=== PATIENT | male | born 1955 | race Caucasian/White ===

== ENCOUNTER 2018-02-28 12:50 | Outpatient (CLI) | payer BC, MEDICARE ==
--- NOTE | 2018-02-28 18:19 | MRI ---
MRI OF CERVICAL SPINE WITHOUT CONTRAST 02/28/18 COMPARISON: 02/23/15. HISTORY: Chronic neck pain radiating from back to head. TECHNIQUE: Multiplanar and multisequence MRI imaging of the cervical spine is provided without contrast. FINDINGS: There is scoliosis of the cervical spine, limiting detailed assessment. The study is also somewhat li mited by motion artifact. The sagittal STIR imaging demonstrates no focal areas of osseous marrow janis ma. There is no significant anterolisthesis or retrolisthesis evident on this exam. There is moderate degenerative change at the atlantoaxial interspaces, slightly progressed since the prior exam. C2-3: There is disc desiccation with bilateral facet and uncovertebral osteophyte formation, right gr eater than left. No significant central canal stenosis. Mild bilateral neural foraminal stenosis. C3-4: Disc desiccation present with bilateral facet and uncovertebral osteophyte formation, left grea ter than right. Mild central canal stenosis and right neural foraminal stenosis. Moderate left neural foraminal stenosis. C4-5: There is disc desiccation and mild disc space narrowing. There is bilateral facet and uncoverte bral osteophyte formation. There is no significant central canal stenosis. There is mild bilateral ne ural foraminal stenosis. C5-6: There is disc space narrowing, disc desiccation, anterior osteophyte formation and disc osteoph yte complex partially effacing the ventral thecal and leading to a mild degree of central canal steno sis. There is bilateral facet and uncovertebral osteophyte formation with moderate right and severe l eft neural foraminal stenosis. C6-7: Disc space narrowing, disc desiccation, anterior osteophyte formation and disc osteophyte compl ex present. There is effacement of the ventral thecal sac with mild central canal stenosis. There is mild right and severe left neural foraminal stenosis. C7-T1: Disc space narrowing and disc desiccation with bilateral facet hypertrophy. Mild bilateral ana luisa ral foraminal stenosis. No significant central canal stenosis. There is no focal area of abnormal sig nal intensity identified within the cervical cord. Detailed assessment on axial imaging is limited by persistent patient motion artifact. IMPRESSION: Multilevel degenerative change within the cervical spine as detailed above. POS: [facility]
== END 2018-02-28 12:51 | disposition home or self-care (01) ==
LOC: SCSMRI 12:50
PROVIDERS: ATTEND Psychiatry & Neurology Neurology
DX: G56.03 Carpal tunnel syndrome, bilateral upper limbs (principal); M47.892 Other spondylosis, cervical region
CPT/HCPCS: 72141

== ENCOUNTER 2018-04-08 14:48 | Inpatient (IN) | payer BC, MEDICARE ==
--- NOTE | 2018-04-08 15:23 | RAD ---
CHEST 1 VIEW: HISTORY: Nausea. Abdominal and chest pain. COMPARISON: 07/02/17. FINDINGS: Cardiac silhouette magnified by projection. Pulmonary vasculature upper limits of normal. Mediastin um is midline. Right hemidiaphragm remains lobulated. No lobar consolidation or evidence of pneumot horax. cardiac monitor leads overlie the chest. IMPRESSION: Borderline pulmonary vascular congestion. POS: [facility]
[2018-04-08 15:33] LABS: Hemoglobin 12.4 g/dL (14.0-18.0); Mean Corpuscular HGB CONC 34.1 g/dL (32.0-36.0); Mean Platelet Volume 7.3 fL (7.4-10.4); Platelet Count 154 thou/uL (130-400); RBC Distribution Width 14.6 % (11.5-14.5); Red Blood Cell (RBC) Count 4.14 mill/uL (4.70-6.10); White Blood Cell (WBC) Count 6.6 thou/uL (4.8-10.8)
[2018-04-08 15:54] LABS: ALT (SGPT) 30 U/L (8-55); AST (SGOT) 73 U/L (5-34); Albumin 3.5 g/dL (3.4-4.8); Alkaline Phosphatase 220 U/L (40-150); Anion Gap 18 mmol/L (10-20); BUN (Urea Nitrogen) 42 mg/dL (8.4-25.7); Bilirubin, Total 1.9 mg/dL (0.2-1.2); Calc. Creatinine Clearance 0 mL/min (70-130); Calcium 8.8 mg/dL (7.8-10.44); Carbon Dioxide 18 mmol/L (23-31); Chloride 102 mmol/L (98-107); Estimated GFR-MDRD 27; Globulin 2.6 g/dL (2.4-3.5); Glucose 111 mg/dL (80-115); Lipase 52 U/L (8-78); Potassium 3.6 mmol/L (3.5-5.1); Protein, Total 6.1 g/dL (5.8-8.1); Sodium 134 mmol/L (136-145)
[2018-04-08 16:00] LABS: Band 41 % (5-11); Lymphocytes 1 % (21-51); MDiff Complete? YES; Metamyelocyte 8 % (0-0); Myelocyte 3 % (0-0); Neutrophil 47 % (42-75); PLT Morphology Comment Appears Adequate; Polychromasia SLIGHT = 2-3 cells (100X) (0-2/hpf); Reflex for Review?? YES; Vacuoles MODERATE
[2018-04-08] MEDS ORDERED: Diphenoxylate HCl/Atropine Tablet PO SCH (16:00)
[2018-04-08] MEDS ORDERED: Diphenoxylate HCl/Atropine Tablet ONE (16:06)
[2018-04-08] MEDS ORDERED: Norepinephrine 8 MG/250 ML BAG IVPB PRN (16:46)
[2018-04-08] MEDS ORDERED: metroNIDAZOLE 500 MG/100 ML BAG ONE (17:17)
--- NOTE | 2018-04-08 18:15 | RAD ---
ABDOMEN ONE VIEW 04/08/18 HISTORY: Central line verification. COMPARISON: None. FINDINGS: A central venous catheter is in place in the left femoral areas with the tip not well see, quite poss ibly due to the SI joint fusion hardware. Lumbosacral fusion hardware is also present. IMPRESSION: Left femoral catheter tip not well seen. Followup recommended. POS: [facility]
[2018-04-08 18:32] LABS: Bilirubin Negative (Negative); Blood, Urine Large (Negative); Clarity TURBID (Clear); Glucose, Urine (Dipstick) Negative (Negative); Leukocyte Large (Negative); Nitrite Negative (Negative); Protein, Urine (Dipstick) 100 mg/dL (Neg-Trace); Specific Gravity, Urine 1.012 (1.002-1.036); pH, Urine 5.5 (5.0-9.0)
[2018-04-08 18:35] LABS: Bacteria/HPF 4+ HPF (None Seen); Hyaline Casts/LPF 0-3 HYALINE CAST LPF (0-3 Hyaline); Pathc Cast-AUWi Flag 0.14 (0-2.49); RBC/HPF GREATER THAN 50-TNTC HPF (0-3); Squamous Epithelial 0-3 HPF (0-3)
[2018-04-08] MEDS ORDERED: Acetaminophen 325 MG TAB PO PRN (19:32)
[2018-04-08] MEDS ORDERED: Ondansetron ODT 4 MG TAB SL PRN (19:32)
[2018-04-08] MEDS ORDERED: Sodium Chloride 0.9% 1,000 ML IV SCH ×2 (19:32→20:02)
[2018-04-08] MEDS ORDERED: Ondansetron HCl/PF 4 MG/2 ML Vial IVP PRN ×2 (19:32→20:02)
--- NOTE | 2018-04-08 20:01 | HP ---
PRIMARY CARE PHYSICIAN: Dr. Jacqueline Mccallum in [place]. CHIEF COMPLAINT: Nausea, vomiting, diarrhea, and feeling weak. HISTORY OF PRESENT ILLNESS: Mr. Vu is a pleasant 62-year-old gentleman who has a history of h ypertension and peptic ulcer disease as well as posttraumatic stress disorder. He was in his usual s oneill of health until this past Tuesday. He says that he got overheated and started feeling very we ak and the muscles were hurting him really bad, then he started vomiting and having diarrhea. He say s he tried to take it easy and drink as much fluids as he could, but he could not hold anything down including his medications, then by Tuesday it started getting worse. He trying to drink water as well as Dr. Mayo thinking it might help, but he still got very weak and was having no energy. During t his time, he continued to vomit at least 3-4 times a day as well as have diarrhea, which he says is m ore like a soft stool at least 3-4 times a day as well. He did not notice any blood in the stool, bu t on Tuesday, he said he noticed a lot of blood in his urine. He says it was so much that it was e karla getting on the toilet seat. He also noted some burning with urination. He always has back pain due to chronic back pain, so that had not changed. He did notice some fever and chills on Wednesdays and , as well as on Tuesday. He does have nocturia at least 2-3 times a day and has noted a decrease in his urine stream. Also, regarding the nausea and vomiting, he says he has not eaten an ything different. No one else has been sick in the house and prior to this current illness, he was n ot having any excessive difficulty with eating. REVIEW OF SYSTEMS: Constitutional: He has had subjective fever and chills, decreased oral intake an d decrease in his appetite. HEENT: He has felt dizzy and some lightheadedness, but no visual change s, no sore throat, rhinorrhea, neck pain, no adenopathy. Pulmonary: No hemoptysis, no cough, no whe ezing. Cardiovascular: He denies any chest pain or shortness of breath, no PND, no orthopnea. Maribell rointestinal: As the history of present illness. Genitourinary: As the history of present illness. Musculoskeletal: He does complain of some muscle aches and feeling weak earlier in the week. Neur ologic: No focal weakness or numbness, no seizures. Psychiatric: No symptoms of anxiety or depress ion. Skin and Integument: No skin changes. No rash. PAST MEDICAL HISTORY: Significant for peptic ulcer disease and significant GI bleed secondary to mary t requiring transfusion. Hypertension and posttraumatic stress disorder. PAST SURGICAL HISTORY: He has had spinal surgery, septic arthritis of the right knee. He has also h ad a total knee replacement on the right. Multiple back surgeries as well as hip surgery. SOCIAL HISTORY: He is a former smoker. He quit about 15 years ago. He denies any alcohol use. He is and he is retired. ALLERGIES: PENICILLIN. FAMILY HISTORY: History of heart disease and cancer. CURRENT MEDICATIONS: Include fenofibrate 145 mg daily, lisinopril/hydrochlorothiazide 20/25 one tabl et twice a day, metoprolol 50 mg daily, Protonix 40 mg a day, Viagra 100 mg daily, simvastatin 20 mg daily, Seroquel 50 mg daily, amlodipine 5 mg daily, Meloxicam 15 mg at bedtime. PHYSICAL EXAMINATION: VITAL SIGNS: His initial blood pressure was 85/50, heart rate was 106, respiratory rate of 24, tempe rature is 99.4. GENERAL: He is a well-developed and well-nourished. He appears to be in some distress and he is unc omfortable, but he says this is because of back pain which is chronic. HEENT: His pupils are equal, round, and reactive. Extraocular muscles are intact. Sclerae are anic teric. Throat: There is no erythema, no exudates. NECK: No adenopathy, no bruits. LUNGS: Clear to auscultation. There is no wheezing or rales. CARDIOVASCULAR: He has a normal S1, S2. There is no S3 or S4. No murmurs, clicks or rubs. ABDOMEN: Distended, it is obese, it is nontender. There is no rebound or guarding. Positive bowel sounds. EXTREMITIES: He has got trace pedal edema. He has got palpable dorsalis pedis pulses. NEUROLOGICALLY: The exam is nonfocal. LABORATORY DATA: White blood cell count 6.6, hemoglobin 12.4, hematocrit is 36.5, platelet count was 154. He had 41 bands. Sodium 134, potassium 3.6, chloride is 102, CO2 is 18, BUN of 42, creatinine 2.4 and glucose is 111. Lactic acid is 4.4. His total bilirubin was 1.9, alkaline phosphatase was 220. He had an abdominal x-ray which was primarily for line placement. Chest x-ray was essentially negative. ASSESSMENT AND PLAN: This is a pleasant 62-year-old gentleman who presents to the emergency room wit h nausea, vomiting, and diarrhea, which is going on for several days. He was hypotensive on presenta tion and has a bandemia and low-grade temperature. There are no obvious signs of infection; however, the patient does admit to some hematuria and the urinalysis has only just now been sent. The urine color was tannish; however, it was clear. It is also noted that he has an elevated total bilirubin a s well as alkaline phosphatase, and he still has his gallbladder, therefore gallbladder pathology is a possibility in addition to potentially a urine source. He also has an acute renal failure likely a s a result of a combination of volume depletion as well as sepsis. He will be placed in the ICU, sta rted on fluid resuscitation, he is already had 4 liters in the emergency room. This will be continue d. He will be placed on antibiotics to cover primarily a GI or urine source. Urinalysis and urine c ulture will be sent. Given the acute renal failure, we will also get a renal ultrasound and we will get an abdominal ultrasound given the elevated alkaline phosphatase. If he has a urinary tract infec tion and his symptoms improve with treatment with IV antibiotics, then we will forego getting a GI co nsult; however, if his nausea and vomiting persist, then a GI consultation will be entertained. Give n his history of peptic ulcer disease, we will place him on IV Protonix twice a day as well as IV ant iemetics until his acute symptomatology can be sorted out.
[2018-04-08] MEDS ORDERED: Ondansetron ODT 4 MG TAB PO PRN (20:02)
--- NOTE | 2018-04-08 20:03 | RAD ---
CHEST ONE VIEW: 04/08/18 HISTORY: Central line placement. COMPARISON: Chest radiograph same day. FINDINGS: No central venous catheter is seen on this examination. Heart size is mildly enlarged. Mild worsening pulmonary venous congestion. IMPRESSION: Mild worsening pulmonary venous congestion. No central venous catheter is seen. POS: [facility]
[2018-04-08 20:08] LABS: Lactic Acid 3.6 mmol/L (0.5-2.2)
[2018-04-08] MEDS: Pantoprazole 40 MG VIAL IVP SCH (20:14)
[2018-04-08] MEDS: traMADol HCl 50 MG TAB PO PRN (20:14)
[2018-04-08] MEDS ORDERED: Furosemide 40 MG/4 ML VIAL SLOW IVP SCH (20:15)
[2018-04-08] MEDS: Acetaminophen 325 MG TAB PO PRN (20:15)
[2018-04-08] MEDS ORDERED: Acetaminophen/Codeine 30-300mg Tablet PO PRN (21:06)
[2018-04-08] MEDS ORDERED: Ferrous Sulfate 325 MG TAB PO SCH (21:30)
[2018-04-08] MEDS ORDERED: Atorvastatin Calcium 10 MG TAB PO SCH (21:30)
[2018-04-08] MEDS ORDERED: Venlafaxine HCl XR 150 MG CAP PO SCH (21:30)
[2018-04-08] MEDS ORDERED: Fenofibrate Nanocrystallized 145 MG TAB PO SCH (21:30)
[2018-04-08] MEDS: Fenofibrate Nanocrystallized 145 MG TAB PO SCH (22:29)
[2018-04-08] MEDS: Atorvastatin Calcium 10 MG TAB PO SCH (22:30)
[2018-04-08] MEDS: Ferrous Sulfate 325 MG TAB PO SCH (22:30)
[2018-04-08] MEDS: Sodium Chloride 0.9% 1,000 ML IV SCH (22:42)
[2018-04-09] MEDS: Norepinephrine 8 MG/0.9% NS 250 ML IVPB SCH ×3 (00:28→09:23)
[2018-04-09] MEDS: Vasopressin 40 UNIT, Admixture Fee 1 EACH in Sodium Chloride 0.9% 100 ML IV SCH ×2 (01:27→17:53)
[2018-04-09 05:27] LABS: Anion Gap 15 mmol/L (10-20); BUN (Urea Nitrogen) 42 mg/dL (8.4-25.7); Calc. Creatinine Clearance 57 mL/min (70-130); Calcium 8.5 mg/dL (7.8-10.44); Carbon Dioxide 20 mmol/L (23-31); Chloride 102 mmol/L (98-107); Estimated GFR-MDRD 30; Glucose 103 mg/dL (80-115); Potassium 4.3 mmol/L (3.5-5.1); Sodium 133 mmol/L (136-145)
[2018-04-09 05:30] LABS: Band 41 % (5-11); Lymphocytes 1 % (21-51); MDiff Complete? YES; Mean Corpuscular HGB CONC 33.7 g/dL (32.0-36.0); Mean Corpuscular Hemoglobin 29.9 pg (27.0-31.0); Mean Corpuscular Volume 88.8 fl (80.0-94.0); Mean Platelet Volume 7.5 fL (7.4-10.4); Metamyelocyte 2 % (0-0); Monocytes 1 % (0-10); Myelocyte 1 % (0-0); Neutrophil 54 % (42-75); PLT Morphology Comment Appears Adequate; Platelet Count 155 thou/uL (130-400); RBC Distribution Width 14.5 % (11.5-14.5); Red Blood Cell (RBC) Count 4.01 mill/uL (4.70-6.10); Toxic Granulation SLIGHT; Vacuoles SLIGHT; White Blood Cell (WBC) Count 20.9 thou/uL (4.8-10.8)
--- NOTE | 2018-04-09 07:54 | ULT ---
SONOGRAM ABDOMEN COMPLETE: HISTORY: Upper abdomen pain. Abnormal liver function tests. FINDINGS: Gallbladder discussed up to 9.0 cm. No shadowing stones are apparent. Gallbladder wall is somewhat thickened at 0.6 cm with minimal pericholecystic fluid. Liver is heterogeneous without intrahepatic biliary dilatation evident. Common duct 0.6 cm. No sign ificant free fluid. Small right renal cyst. No hydronephrosis. Tiny echogenic focus at the superio r pole left kidney is nonspecific. Urinary bladder decompressed. Spleen unremarkable. The aorta, I VC, and pancreas are predominantly obscured. IMPRESSION: Gallbladder distention and wall thickening can be seen with acute cholecystitis, although these are n onspecific findings. Clinical correlation regarding other signs and symptoms of acute cholecystitis is required. No evidence of central biliary obstruction. No focal hepatic abnormalities are apparen t. POS: [facility]
[2018-04-09] MEDS: traMADol HCl 50 MG TAB PO PRN ×3 (08:04→19:48)
[2018-04-09] MEDS: Acetaminophen 325 MG TAB PO PRN ×2 (08:05→14:17)
[2018-04-09] MEDS: Pantoprazole 40 MG VIAL IVP SCH ×2 (08:05→19:48)
[2018-04-09] MEDS ORDERED: Venlafaxine HCl XR 150 MG CAP PO SCH (09:00)
[2018-04-09] MEDS ORDERED: cefTRIAXone\\ROCEPHIN 1 GM in Sodium Chloride 0.9% 100 ML IVPB SCH (10:00)
[2018-04-09] MEDS: Hydrocortisone Sod Succ/PF 100 mg/2 ml Vial IVP SCH ×3 (11:43→23:03)
[2018-04-09] MEDS: Venlafaxine HCl XR 150 MG CAP PO SCH (11:44)
[2018-04-09 12:29] LABS: AST (SGOT) 110 U/L (5-34); Bilirubin, Direct 1.2 mg/dL (0.1-0.3); Bilirubin, Total 1.7 mg/dL (0.2-1.2)
[2018-04-09 12:40] LABS: ALT (SGPT) 51 U/L (8-55); Albumin 3.5 g/dL (3.4-4.8); Alkaline Phosphatase 82 U/L (40-150); Protein, Total 6.3 g/dL (5.8-8.1)
[2018-04-09] MEDS: Sodium Chloride 0.9% 1,000 ML IV SCH (14:17)
[2018-04-09] MEDS ORDERED: Meropenem 1 GM in Sodium Chloride 0.9% 100 ML IVPB SCH (14:30)
[2018-04-09] MEDS: MEROPENEM 1 GM/50 ML 1 GM in Premix Bag 1 BAG IVPB SCH ×2 (15:10→23:06)
--- NOTE | 2018-04-09 15:30 | PDOC.PN ---
- Subjective Encounter Start Date: 04/09/18 Encounter Start Time: 10:30 Subjective: pt up in bed eating - Objective Resuscitation Status: Resuscitation Status FULL:Full Resuscitation Vital Signs & Weight: Vital Signs (12 hours) Temp Pulse Resp Pulse Ox 04/09/18 12:00 98.1 F 04/09/18 08:52 98 04/09/18 08:00 97.9 F 102 H 21 H 100 Weight Weight 262 lb 2.074 oz Most Recent Monitor Data Heart Rate from ECG 80 NIBP 113/74 NIBP BP-Mean 86 Respiration from ECG 24 SpO2 100 I&O: 04/08/18 04/09/18 04/10/18 06:59 06:59 06:59 Intake Total 1339.5 1080 Output Total 3675 1930 Balance -2335.5 -850 Result Diagrams: 04/09/18 04:45 04/09/18 04:45 Phys Exam - Physical Examination HEENT: PERRLA, moist MMs, sclera anicteric, TM's clear, oral pharynx no lesions , 2+ tonsils Neck: no nodes, no JVD, supple, full ROM Respiratory: no wheezing, no rales, no rhonchi, wheezing present, clear to auscultation bilateral Cardiovascular: RRR, no significant murmur, no rub, gallop, irregular Gastrointestinal: soft, non-tender, no distention, positive bowel sounds Musculoskeletal: no edema, pulses present, edema present Dx/Plan (1) Sepsis Code(s): A41.9 - SEPSIS, UNSPECIFIED ORGANISM Status: Acute (2) UTI (urinary tract infection) Status: Acute (3) Leukocytosis Code(s): D72.829 - ELEVATED WHITE BLOOD CELL COUNT, UNSPECIFIED Status: Acute (4) Acute kidney injury Code(s): N17.9 - ACUTE KIDNEY FAILURE, UNSPECIFIED Status: Acute Comment: resolving - Plan * . pt is still on 2 pressors but are being weaned down. will change abx to meropenam since he is still on pressors but clinically appears well. His RUQ ultrasound indicated gall bladder enlargement and thickness. may get HIDA scan. Review of Systems - Review of Systems ENT: negative: Ear Pain, Ear Discharge, Nose Pain, Nose Discharge, Nose Congestion, Mouth Pain, Mouth Swelling, Throat Pain, Throat Swelling, Other Respiratory: negative: Cough, Dry, Shortness of Breath, Hemoptysis, SOB with Excertion, Pleuritic Pain, Sputum, Wheezing Cardiovascular: negative: chest pain, palpitations, orthopnea, paroxysmal nocturnal dyspnea, edema, light headedness, other Gastrointestinal: negative: Nausea, Vomiting, Abdominal Pain, Diarrhea, Constipation, Melena, Hematochezia, Other Genitourinary: negative: Dysuria, Frequency, Incontinence, Hematuria, Retention , Other - Medications/Allergies Allergies/Adverse Reactions: Allergies Allergy/AdvReac Type Severity Reaction Status Date / Time Penicillins Allergy Severe chest Verified 07/02/17 18:49 cramps, "massive" Medications: Current Medications Acetaminophen (Tylenol) 650 mg PO Q4H PRN PRN Reason: Headache/Fever or Pain Last Admin: 04/09/18 14:17 Dose: 650 mg Acetaminophen/Codeine Phosphate (Tylenol #3) 1 tab PO TID PRN PRN Reason: Pain Albuterol/Ipratropium (Duoneb) 3 ml NEB Q4H PRN PRN Reason: .SOB Last Admin: 04/08/18 20:16 Dose: 3 ml Atorvastatin Calcium (Lipitor) 10 mg PO HS JUDIT Last Admin: 04/08/18 22:30 Dose: 10 mg Fenofibrate (Tricor) 145 mg PO QPM JUDIT Last Admin: 04/08/18 22:29 Dose: 145 mg Ferrous Sulfate (Feosol) 325 mg PO HS JUDIT Last Admin: 04/08/18 22:30 Dose: 325 mg Hydrocortisone Sodium Succinate (Solu-Cortef) 50 mg IVP Q6HR JUDIT Stop: 04/16/18 12:01 Last Admin: 04/09/18 11:43 Dose: 50 mg Norepinephrine Bitartrate (Levophed) 250 mls @ 0 mls/hr IVPB INF JUDIT; Titrate PRN Reason: Protocol Last Admin: 04/09/18 09:23 Dose: 250 mls Sodium Chloride (Normal Saline 0.9%) 1,000 mls @ 50 mls/hr IV .Q20H JUDIT Last Admin: 04/09/18 14:17 Dose: 1,000 mls Vasopressin 40 unit/Miscellaneous Medication 1 each/ Sodium Chloride 102 mls @ 0 mls/hr IV INF JUDIT; As Directed PRN Reason: Protocol Last Admin: 06/10/18 01:27 Dose: 102 mls Meropenem 1 gm/ Device 50 mls @ 100 mls/hr IVPB Q8H [facility] Last Admin: 04/09/18 15:10 Dose: 50 mls Ondansetron HCl (Zofran Odt) 4 mg PO Q6H PRN PRN Reason: Nausea/Vomiting Last Admin: 04/08/18 20:17 Dose: 4 mg Ondansetron HCl (Zofran) 4 mg IVP Q6H PRN PRN Reason: Nausea/Vomiting Pantoprazole Sodium (Protonix) 40 mg IVP Q12HR [facility] Last Admin: 04/09/18 08:05 Dose: Not Given Quetiapine Fumarate (Seroquel) 50 mg PO HS [facility] Last Admin: 04/08/18 22:31 Dose: 50 mg Ranolazine (Ranexa) 500 mg PO BID [facility] Last Admin: 04/09/18 08:04 Dose: 500 mg Sodium Chloride (Flush - Normal Saline) 10 ml IVF Q12HR JUDIT Sodium Chloride (Flush - Normal Saline) 10 ml IVF PRN PRN PRN Reason: Saline Flush Tramadol HCl (Ultram) 50 mg PO Q4H PRN PRN Reason: Moderate Pain (4-6) Last Admin: 04/09/18 14:17 Dose: 50 mg Venlafaxine HCl (Effexor Xr) 150 mg PO 0600,1200 [facility] Last Admin: 04/09/18 11:44 Dose: 150 mg
--- NOTE | 2018-04-09 16:43 | CON ---
DATE OF CONSULTATION: 04/09/2018 HISTORY OF PRESENT ILLNESS: Temo Vu is a 62-year-old obese gentleman from [place], [place], who weighs 113 kilograms, presented to the ER on 04/08/2018 with hypotension, blood pressure 85/55, t emperature 99, respiration 24 with a several day history of intermittent nausea, vomiting, diarrhea, back pain. He said he became overheated on Tuesday, 3 days ago, profuse diarrhea, he has had blood in the urine. Day before coming to the hospital, he did have severe back pain, weakness, dizziness, lightheaded for the hematuria and hypertension. He normally sees a doctor in [place] and Dr. Mccallum. Since admission, he was started on 2 pressors, Levophed and vasopressin, hydrated. He is feeling better this morning. He is awake, alert, and responsive. PAST MEDICAL HISTORY: Pertinent for chronic pain; history of sleep apnea, though he has never been t ested; history of hypertension; history of anxiety; history of traumatic stress syndrome apparently; former smoker, a pack a day for 30 years. PAST SURGICAL HISTORY: Otherwise included a T12-S1 lumbar fusion, rectal surgery, bilateral hip surg iván, right knee surgery. SOCIAL HISTORY: Tobacco as noted, a pack a day for about 15 years, quit smoking 15 years ago. LIST OF MEDICATIONS: From home includes Tylenol No. 3, vitamins, Effexor 150 twice a day, Ranexa 500 twice a day, lisinopril twice a day, Viagra 1 tablet as needed, Seroquel 50, Protonix 40, metoprolol , Keppra 50, Zocor 20, meloxicam 15, Norvasc 5. He is started on Levaquin antibiotic and pressors. ALLERGIES: PENICILLIN. SOCIAL/FAMILY HISTORY: Otherwise unremarkable. REVIEW OF SYSTEMS: Ten point negative. PHYSICAL EXAMINATION: VITAL SIGNS: Blood pressure is 101/80, pulse rate is 80. GENERAL: Awake, alert, responsive. CHEST: Reveals no crackles, rubs or wheezing. CARDIAC: Normal S1, S2, no gallops. ABDOMEN: Soft. No masses. LABORATORY: White count 20,000, H and H 12 and 25, platelet count 55. He has got 41 bands. Creatin ine is 2.4, BUN is 42. Lactic acid 4.6. Urine shows too numerous to count rbcs and wbcs. Ultrasoun d of the abdomen shows gallbladder distention and thickening, possibly cholecystitis. IMPRESSION: Hypotension, sepsis, urinary tract infection, morbid obesity, sleep apnea, renal failure , hypertension, chronic arthritis, depression. PLAN: A consult has been ordered. Continue aggressive hydration. I have added steroids and Rocephin for broader coverage. We will follow. Forty-five minutes critical care time.
[2018-04-09] MEDS: Ferrous Sulfate 325 MG TAB PO SCH (19:47)
[2018-04-09] MEDS: Fenofibrate Nanocrystallized 145 MG TAB PO SCH (19:48)
[2018-04-09] MEDS: Atorvastatin Calcium 10 MG TAB PO SCH (19:48)
[2018-04-09] MEDS ORDERED: ALPRAZolam 1 MG TAB PO PRN (20:13)
[2018-04-10] MEDS: Hydrocortisone Sod Succ/PF 100 mg/2 ml Vial IVP SCH ×4 (05:04→20:47)
[2018-04-10] MEDS: Venlafaxine HCl XR 150 MG CAP PO SCH ×2 (05:04→13:03)
[2018-04-10] MEDS: MEROPENEM 1 GM/50 ML 1 GM in Premix Bag 1 BAG IVPB SCH (05:55)
[2018-04-10] MEDS: Pantoprazole 40 MG VIAL IVP SCH ×2 (08:53→20:47)
--- NOTE | 2018-04-10 08:58 | PRG ---
DATE OF SERVICE: 04/10/2018 This morning he is awake, alert, responsive. PHYSICAL EXAMINATION: VITAL SIGNS: Blood pressure is better 110/80, pulse 80, respiration rate 18. He is still on some va sopressin drip, off of the Levophed. His I's and O's are 3464 in, 3415 out. CHEST: No wheezing. CARDIAC: Normal S1, S2, no gallops. ABDOMEN: Soft, no masses. LABORATORY: Bilirubin is slightly elevated at 1.7. The urine is growing E. coli sensitive to the pr esent antibiotic. IMPRESSION: 1. Escherichia coli sepsis. 2. Relative adrenal insufficiency. 3. Depression. 4. Sleep apnea. PLAN: The patient was started on meropenem. I see no reason. The patient is sensitive to all the p resent antibiotics. I would deescalate antibiotics. PT support and nutrition. I will follow. One-half hour critical care time.
[2018-04-10] MEDS: cefTRIAXone\\ROCEPHIN 2 GM in Sodium Chloride 0.9% 100 ML IVPB SCH (09:30)
[2018-04-10] MEDS: Sodium Chloride 0.9% 1,000 ML IV SCH (13:34)
--- NOTE | 2018-04-10 15:16 | NM ---
HEPATOBILIARY SCAN: Date: 04/10/18 HISTORY: Hepatobiliary scan. HISTORY: Elevated LFTs. RADIOPHARMACEUTICAL: 4.7 mCi technetium-99m mebrofenin injected intravenously. CCK-8: Patient pretreated with an IV infusion of 2.3 mcg CCK-8 over 30 minutes 1/2 hour prior to the exam an d another similar dose after filling of the gallbladder to evaluate contractility. FINDINGS: There is good tracer extraction by the liver with prompt excretion into the biliary tract and small b owel loops, and normal filling of the gallbladder. Calculated gallbladder ejection fraction following CCK-8 administration measures 23%. IMPRESSION: Chronic acalculous cholecystitis/gallbladder dyskinesia. POS: [facility]
--- NOTE | 2018-04-10 18:07 | PDOC.PN ---
- Subjective Encounter Start Date: 04/10/18 Encounter Start Time: 14:00 Subjective: pt up in bed no complains - Objective Resuscitation Status: Resuscitation Status FULL:Full Resuscitation Vital Signs & Weight: Vital Signs (12 hours) Temp Pulse Resp Pulse Ox 04/10/18 16:00 98.5 F 04/10/18 10:13 97 04/10/18 07:08 98.5 F 73 22 H 99 Weight Admit Weight 262 lb Weight 262 lb 3.2 oz Most Recent Monitor Data Heart Rate from ECG 70 NIBP 84/58 NIBP BP-Mean 61 Respiration from ECG 12 SpO2 97 I&O: 04/09/18 04/10/18 04/11/18 06:59 06:59 06:59 Intake Total 1339.5 3464 932 Output Total 3675 3415 1555 Balance -2335.5 49 -623 Result Diagrams: 04/09/18 04:45 04/09/18 04:45 Phys Exam - Physical Examination HEENT: PERRLA, moist MMs, sclera anicteric, TM's clear, oral pharynx no lesions , 2+ tonsils Neck: no nodes, no JVD, supple, full ROM Respiratory: no wheezing, no rales, no rhonchi, wheezing present, clear to auscultation bilateral Cardiovascular: RRR, no significant murmur, no rub, gallop, irregular Gastrointestinal: soft, non-tender, no distention, positive bowel sounds Musculoskeletal: no edema, pulses present, edema present Dx/Plan (1) Sepsis Code(s): A41.9 - SEPSIS, UNSPECIFIED ORGANISM Status: Acute (2) UTI (urinary tract infection) Status: Acute (3) Leukocytosis Code(s): D72.829 - ELEVATED WHITE BLOOD CELL COUNT, UNSPECIFIED Status: Acute (4) Acute kidney injury Code(s): N17.9 - ACUTE KIDNEY FAILURE, UNSPECIFIED Status: Acute Comment: resolving - Plan * . pt is off pressors but he is on stress dose of steroids. His cx indicated ecoli sensitive to ecoli but pt bp is still low after adequate fluid resuscitation. hida scan ordered indicated chronic cholecystitis will get surgery to see pt. Would tirtrate steroids or stop them since there is no indication for them. Review of Systems - Review of Systems ENT: negative: Ear Pain, Ear Discharge, Nose Pain, Nose Discharge, Nose Congestion, Mouth Pain, Mouth Swelling, Throat Pain, Throat Swelling, Other Respiratory: negative: Cough, Dry, Shortness of Breath, Hemoptysis, SOB with Excertion, Pleuritic Pain, Sputum, Wheezing Cardiovascular: negative: chest pain, palpitations, orthopnea, paroxysmal nocturnal dyspnea, edema, light headedness, other Gastrointestinal: negative: Nausea, Vomiting, Abdominal Pain, Diarrhea, Constipation, Melena, Hematochezia, Other - Medications/Allergies Allergies/Adverse Reactions: Allergies Allergy/AdvReac Type Severity Reaction Status Date / Time Penicillins Allergy Severe chest Verified 07/02/17 18:49 cramps, "massive" Medications: Current Medications Acetaminophen (Tylenol) 650 mg PO Q4H PRN PRN Reason: Headache/Fever or Pain Last Admin: 04/09/18 14:17 Dose: 650 mg Acetaminophen/Codeine Phosphate (Tylenol #3) 1 tab PO TID PRN PRN Reason: Pain Albuterol/Ipratropium (Duoneb) 3 ml NEB Q4H PRN PRN Reason: .SOB Last Admin: 04/08/18 20:16 Dose: 3 ml Alprazolam (Xanax) 0.5 mg PO HSPRN PRN PRN Reason: Anxiety/Insomnia Atorvastatin Calcium (Lipitor) 10 mg PO HS [facility] Last Admin: 04/09/18 19:48 Dose: 10 mg Diphenhydramine HCl (Benadryl) 25 mg PO HS PRN PRN Reason: Insomnia Ferrous Sulfate (Feosol) 325 mg PO HS [facility] Last Admin: 04/09/18 19:47 Dose: 325 mg Hydrocortisone Sodium Succinate (Solu-Cortef) 50 mg IVP Q6HR [facility] Stop: 04/16/18 12:01 Last Admin: 04/10/18 17:42 Dose: 50 mg Sodium Chloride (Normal Saline 0.9%) 1,000 mls @ 50 mls/hr IV .Q20H [facility] Last Admin: 04/10/18 13:34 Dose: 1,000 mls Ceftriaxone Sodium 2 gm/ (Sodium Chloride) 100 mls @ 200 mls/hr IVPB DAILY [facility] Last Admin: 04/10/18 09:30 Dose: 100 mls Ondansetron HCl (Zofran Odt) 4 mg PO Q6H PRN PRN Reason: Nausea/Vomiting Last Admin: 04/08/18 20:17 Dose: 4 mg Ondansetron HCl (Zofran) 4 mg IVP Q6H PRN PRN Reason: Nausea/Vomiting Pantoprazole Sodium (Protonix) 40 mg IVP Q12HR [facility] Last Admin: 04/10/18 08:53 Dose: 40 mg Quetiapine Fumarate (Seroquel) 50 mg PO HS [facility] Last Admin: 04/09/18 19:47 Dose: 50 mg Ranolazine (Ranexa) 500 mg PO BID [facility] Last Admin: 04/10/18 08:57 Dose: 500 mg Sodium Chloride (Flush - Normal Saline) 10 ml IVF Q12HR [facility] Last Admin: 04/10/18 08:52 Dose: 10 ml Sodium Chloride (Flush - Normal Saline) 10 ml IVF PRN PRN PRN Reason: Saline Flush Tramadol HCl (Ultram) 50 mg PO Q4H PRN PRN Reason: Moderate Pain (4-6) Last Admin: 04/09/18 19:48 Dose: 50 mg Venlafaxine HCl (Effexor Xr) 150 mg PO 0600,1200 [facility] Last Admin: 04/10/18 13:03 Dose: 150 mg
[2018-04-10] MEDS: Ferrous Sulfate 325 MG TAB PO SCH (20:47)
[2018-04-10] MEDS: Atorvastatin Calcium 10 MG TAB PO SCH (20:48)
[2018-04-10] MEDS ORDERED: diphenhydrAMINE 25 MG CAP PO PRN (21:00)
--- NOTE | 2018-04-10 22:36 | HP ---
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 He is now retired. He presents this hospitalization on 04/08/2018. He admit tino to Hospitalist Service for acute superimposed on chronic kidney injury, nausea, vomiting, diarrhe a, and malaise. He noticed some decrease in urine stream. He has had fever and chills. No other il lnesses in the family noted. He had a fever, concentrated urine. On admission, his white count was 6.6, today at the ER stay is 20.9. On admission, BUN 42, creatinine 2.45, today 42 and 2.24. Lactic acid on admission 4.4, bilirubin on admission 1.9, today 1.7. This hospitalization, the patient has had urine cultures, positive for E. coli greater than 10 to the fifth. Blood cultures have been neg ative today. On admission, the patient had abdominal x-ray that was nonspecific. Ultrasound reveale d a distended gallbladder with possible pericholecystic fluid. Liver was normal without ductal dilat ation. Bile duct was measured at 6 mm. No stones or sludge were noted. The patient subsequently to day underwent hepatobiliary scan revealing ejection fraction of 23%. There was prompt filling of the gallbladder and prompt emptying of the biliary tree. The patient denies having any discomfort durin g the hepatobiliary scan. He denies having any past history of abdominal complaints. He has been se en by Gastroenterology and had upper endoscopies revealing intermittent gastritis and antral ulcers. He was seen as an outpatient and had colonoscopies, last of which was 5 years ago and they recall th at is normal. ALLERGIES: PENICILLIN. TOBACCO: None. ALCOHOL: None. HOME MEDICATIONS: Tylenol No. 3, multivitamins, ferrous sulfate, Effexor, Ranexa, lisinopril, p.r.n. Viagra, Protonix, fenofibrate, Zo cor, meloxicam, and Norvasc. PAST MEDICAL HISTORY: Hypertension, elevated cholesterol, history of antral ulcers and gastritis, pollard d two upper endoscopies in the past, hypertension, posttraumatic stress disorder, chronic kidney dise ase with superimposed acute kidney injury this hospitalization. Approximately 2 years ago, he had a cardiac catheterization that did not have any significant disease. Last year, 07/2017, he had a nucl ear stress test that was normal with normal ejection fraction. PHYSICAL EXAMINATION: VITAL SIGNS: Height 5 feet 10, 262 pounds, 37 BMI, 117/71, and 77 heart rate. HEENT: Unremarkable. Sclerae nonicteric. SKIN: Nonjaundiced. LUNGS: Clear to auscultation. CARDIAC: Regular rate and rhythm without murmur or gallop. ABDOMEN: Soft, nontender, no masses, obese. No hernias. EXTREMITIES: Unremarkable. ASSESSMENT AND PLAN: Abnormal gallbladder ejection fraction without HIDA scan producing any symptoms . No history of biliary disease. The patient's elevated liver function tests are probably related t o his urinary tract infection or other causes. His bile duct is not dilated. His HIDA scan was norm al except for a low ejection fraction, but clinically he does not have any biliary complaints. I wou ld not recommend any surgery at this time. I would resume his heart healthy diet and I will see him as needed. He is welcome to see me as an outpatient. There is no indication for cholecystectomy or further biliary workup at this time. Mild bilirubin elevation may be due to his urinary tract infect ion and cholestasis secondary to fatty liver, obesity, but certainly cholecystectomy is not indicated . He can see me as an outpatient.
[2018-04-10] MEDS: Acetaminophen 325 MG TAB PO PRN (23:06)
[2018-04-10] MEDS: ALPRAZolam 0.5 MG TAB PO PRN (23:06)
[2018-04-10] MEDS: traMADol HCl 50 MG TAB PO PRN (23:06)
[2018-04-11 04:51] LABS: ALT (SGPT) 37 U/L (8-55); AST (SGOT) 61 U/L (5-34); Albumin 3.5 g/dL (3.4-4.8); Alkaline Phosphatase 93 U/L (40-150); Anion Gap 13 mmol/L (10-20); BUN (Urea Nitrogen) 37 mg/dL (8.4-25.7); Bilirubin, Total 0.8 mg/dL (0.2-1.2); Calc. Creatinine Clearance 84 mL/min (70-130); Calcium 8.2 mg/dL (7.8-10.44); Carbon Dioxide 23 mmol/L (23-31); Chloride 108 mmol/L (98-107); Estimated GFR-MDRD 47; Globulin 2.6 g/dL (2.4-3.5); Glucose 136 mg/dL (80-115); Potassium 3.9 mmol/L (3.5-5.1); Protein, Total 6.1 g/dL (5.8-8.1); Sodium 140 mmol/L (136-145)
[2018-04-11 05:15] LABS: Band 14 % (5-11); Hemoglobin 10.7 g/dL (14.0-18.0); Lymphocytes 1 % (21-51); MDiff Complete? YES; Mean Corpuscular HGB CONC 34.1 g/dL (32.0-36.0); Mean Corpuscular Hemoglobin 30.2 pg (27.0-31.0); Mean Corpuscular Volume 88.7 fl (80.0-94.0); Mean Platelet Volume 8.2 fL (7.4-10.4); Monocytes 2 % (0-10); Neutrophil 83 % (42-75); Platelet Count 131 thou/uL (130-400); RBC Distribution Width 14.9 % (11.5-14.5); Red Blood Cell (RBC) Count 3.53 mill/uL (4.70-6.10); Toxic Granulation SLIGHT; White Blood Cell (WBC) Count 22.8 thou/uL (4.8-10.8)
[2018-04-11] MEDS: Venlafaxine HCl XR 150 MG CAP PO SCH ×2 (06:10→12:24)
[2018-04-11 06:22] VITALS: BMI 37.5
--- NOTE | 2018-04-11 08:37 | PRG ---
DATE OF SERVICE: 04/11/2018 The patient is awake, alert, responsive. PHYSICAL EXAMINATION: VITAL SIGNS: Blood pressure has resolved, much improved 142/90. She is off all pressors, respiratio ns 26, temperature 98, sats 100%. I's & O's have been good 1510 in, 3710 out. CHEST: Chest reveals no wheezing. CARDIAC: Normal S1-S2. No gallops. ABDOMEN: Soft. No masses. LABORATORY: White count 20,000, H&H 10 and 30, platelet count 131, creatinine 1.52. IMPRESSION: 1. Escherichia coli sepsis. 2. Hypertension, resolved. 3. Sleep apnea. 4. Cholelithiasis. PLAN: The patient can be transferred out of the ICU. Continue antibiotics. Outpatient gallbladder surgery. Outpatient sleep study.
[2018-04-11] MEDS: Hydrocortisone Sod Succ/PF 100 mg/2 ml Vial IVP SCH (08:53)
[2018-04-11] MEDS: cefTRIAXone\\ROCEPHIN 2 GM in Sodium Chloride 0.9% 100 ML IVPB SCH (08:54)
[2018-04-11] MEDS: Pantoprazole 40 MG VIAL IVP SCH ×2 (08:54→20:32)
[2018-04-11] MEDS: Sodium Chloride 0.9% 1,000 ML IV SCH (09:15)
[2018-04-11] MEDS: Lisinopril/Hydrochlorothiazide 20 mg/12.5 mg Tablet PO SCH (20:30)
[2018-04-11] MEDS: Ferrous Sulfate 325 MG TAB PO SCH (20:31)
[2018-04-11] MEDS: Atorvastatin Calcium 10 MG TAB PO SCH (20:31)
[2018-04-11] MEDS ORDERED: Hydrocortisone Sod Succ/PF 100 mg/2 ml Vial IVP SCH (21:00)
[2018-04-11] MEDS: Acetaminophen 325 MG TAB PO PRN (23:09)
[2018-04-11] MEDS: traMADol HCl 50 MG TAB PO PRN (23:09)
[2018-04-11] MEDS: ALPRAZolam 0.5 MG TAB PO PRN (23:09)
[2018-04-12] MEDS: Venlafaxine HCl XR 150 MG CAP PO SCH ×2 (06:10→11:50)
--- NOTE | 2018-04-12 06:51 | PDOC.PN ---
- Subjective Encounter Start Date: 04/11/18 Encounter Start Time: 10:00 Subjective: pt up in bed no complains - Objective Resuscitation Status: Resuscitation Status FULL:Full Resuscitation Vital Signs & Weight: Vital Signs (12 hours) Temp Pulse Resp BP Pulse Ox 04/12/18 04:00 98.1 F 88 20 96 04/12/18 00:00 97.8 F 70 20 146/88 H 93 L 04/11/18 20:15 97.7 F 81 20 146/88 H 100 04/11/18 19:55 97.7 F 81 20 173/125 H 100 Weight Admit Weight 262 lb Weight 262 lb Most Recent Monitor Data Heart Rate from ECG 85 NIBP 159/92 NIBP BP-Mean 115 Respiration from ECG 20 SpO2 100 I&O: 04/10/18 04/11/18 04/12/18 06:59 06:59 06:59 Intake Total 3464 1510 1399 Output Total 3415 3710 665 Balance 49 -2200 734 Result Diagrams: 04/11/18 03:50 04/11/18 03:50 Phys Exam - Physical Examination HEENT: PERRLA, moist MMs, sclera anicteric, TM's clear, oral pharynx no lesions , 2+ tonsils Neck: no nodes, no JVD, supple, full ROM Respiratory: no wheezing, no rales, no rhonchi, wheezing present, clear to auscultation bilateral Cardiovascular: RRR, no significant murmur, no rub, gallop, irregular Gastrointestinal: soft, non-tender, no distention, positive bowel sounds Dx/Plan (1) Sepsis Code(s): A41.9 - SEPSIS, UNSPECIFIED ORGANISM Status: Acute (2) UTI (urinary tract infection) Status: Acute (3) Leukocytosis Code(s): D72.829 - ELEVATED WHITE BLOOD CELL COUNT, UNSPECIFIED Status: Acute (4) Acute kidney injury Code(s): N17.9 - ACUTE KIDNEY FAILURE, UNSPECIFIED Status: Acute Comment: resolving - Plan * steroids discontinued * will start pt's home meds * pt seen by surgery no urgent cholecystectomy * will transfer out of icu * possible discharge in am. * will discontinue lopez Review of Systems - Review of Systems ENT: negative: Ear Pain, Ear Discharge, Nose Pain, Nose Discharge, Nose Congestion, Mouth Pain, Mouth Swelling, Throat Pain, Throat Swelling, Other Respiratory: negative: Cough, Dry, Shortness of Breath, Hemoptysis, SOB with Excertion, Pleuritic Pain, Sputum, Wheezing Cardiovascular: negative: chest pain, palpitations, orthopnea, paroxysmal nocturnal dyspnea, edema, light headedness, other Gastrointestinal: negative: Nausea, Vomiting, Abdominal Pain, Diarrhea, Constipation, Melena, Hematochezia, Other - Medications/Allergies Allergies/Adverse Reactions: Allergies Allergy/AdvReac Type Severity Reaction Status Date / Time Penicillins Allergy Severe chest Verified 07/02/17 18:49 cramps, "massive" Medications: Current Medications Acetaminophen (Tylenol) 650 mg PO Q4H PRN PRN Reason: Headache/Fever or Pain Last Admin: 04/11/18 23:09 Dose: 650 mg Acetaminophen/Codeine Phosphate (Tylenol #3) 1 tab PO TID PRN PRN Reason: Pain Albuterol/Ipratropium (Duoneb) 3 ml NEB Q4H PRN PRN Reason: .SOB Last Admin: 04/08/18 20:16 Dose: 3 ml Alprazolam (Xanax) 0.5 mg PO HSPRN PRN PRN Reason: Anxiety/Insomnia Last Admin: 04/11/18 23:09 Dose: 0.5 mg Amlodipine Besylate (Norvasc) 5 mg PO DAILY [facility] Atorvastatin Calcium (Lipitor) 10 mg PO HS [facility] Last Admin: 04/11/18 20:31 Dose: 10 mg Diphenhydramine HCl (Benadryl) 25 mg PO HS PRN PRN Reason: Insomnia Ferrous Sulfate (Feosol) 325 mg PO HS [facility] Last Admin: 04/11/18 20:31 Dose: 325 mg Lisinopril/HCTZ (Prinizide 20-12.5) 1 tab PO BID [facility] Last Admin: 04/11/18 20:30 Dose: 1 tab Ceftriaxone Sodium 2 gm/ (Sodium Chloride) 100 mls @ 200 mls/hr IVPB DAILY [facility] Last Admin: 04/11/18 08:54 Dose: 100 mls Metoprolol Succinate (Toprol Xl) 50 mg PO BID [facility] Last Admin: 04/11/18 20:31 Dose: 50 mg Ondansetron HCl (Zofran Odt) 4 mg PO Q6H PRN PRN Reason: Nausea/Vomiting Last Admin: 04/08/18 20:17 Dose: 4 mg Ondansetron HCl (Zofran) 4 mg IVP Q6H PRN PRN Reason: Nausea/Vomiting Pantoprazole Sodium (Protonix) 40 mg IVP Q12HR [facility] Last Admin: 04/11/18 20:32 Dose: 40 mg Quetiapine Fumarate (Seroquel) 50 mg PO HS [facility] Last Admin: 04/11/18 20:31 Dose: 50 mg Ranolazine (Ranexa) 500 mg PO BID [facility] Last Admin: 04/11/18 20:31 Dose: 500 mg Sodium Chloride (Flush - Normal Saline) 10 ml IVF Q12HR [facility] Last Admin: 04/11/18 20:32 Dose: 10 ml Sodium Chloride (Flush - Normal Saline) 10 ml IVF PRN PRN PRN Reason: Saline Flush Tramadol HCl (Ultram) 50 mg PO Q4H PRN PRN Reason: Moderate Pain (4-6) Last Admin: 04/11/18 23:09 Dose: 50 mg Venlafaxine HCl (Effexor Xr) 150 mg PO 0600,1200 [facility] Last Admin: 04/12/18 06:10 Dose: 150 mg
--- NOTE | 2018-04-12 09:03 | PRG ---
DATE OF SERVICE: 04/12/2018 This morning he is better. He said he is having difficulty handling his secretions. PHYSICAL EXAMINATION: VITAL SIGNS: Sats are 91% on room air, temperature is 97, blood pressure 144/94. CHEST: Chest reveals decreased breath sounds without any wheezing. CARDIAC: Normal S1, S2. No gallops. ABDOMEN: Soft, no masses. IMPRESSION: 1. Escherichia coli sepsis, probably secondary to urinary tract infection. 2. Morbid obesity. 3. Sleep apnea. 4. Bronchitis. PLAN: Continue antibiotics. Probably can be switched over to p.o. antibiotics. Infectious Disease has been consulted. Outpatient sleep study. The patient is requesting neb treatments which has been arranged.
--- NOTE | 2018-04-12 09:10 | PQF ---
YONY PYLE [place]SE [place] [id number] CLINICAL DOCUMENTATION IMPROVEMENT CLARIFICATION FORM: ICD-10 Updated PLEASE DO AN ADDENDUM TO THE PROGRESS NOTE WITH ANY DOCUMENTATION UPDATES OR ADDITIONS AND CARRY THROUGH TO DC SUMMARY. THANK YOU. DATE: 04-12-18 ATTN: DR. ROJAS Please exercise your independent, professional judgment in responding to the clarification form. Clinical indicators are provided on the bottom of this form for your review Please check appropriate box(s): [ ] Hypovolemic Shock [ x] Septic Shock [ ] Shock Unspecified [ ] Other diagnosis [ ] Unable to determine In addition, please specify: Present on Admission (POA): [ x ] Yes [ ] No [ ] Unable to determine For continuity of documentation, please document condition throughout progress notes and discharge summary. Thank You. CLINICAL INDICATORS - SIGNS / SYMPTOMS / LABS ED: BP 85/55 ; 75/49 ; 78/55; 89/54; 85/57; 79/54 PULSE 99- 106 LABS: 6-9 LACTIC ACIDOSIS 4.4 GFR 27 BUN 42 CREAT 2.45 HH 12.4 RISK FACTORS ED: SEPSIS W/ DEHYDRATION H&P: SEPSIS W/ POSSIBLE URINE SOURCE TREATMENTS: ED: 4 LITERS FLUID IN ED ICU MONITORING MAR: ROCEPHIN 6-/ 6-/6/ 6 MERREM 6-/ 04-10 LEVOPHED 6-10 VASOPRESSIN 6-10 THANK YOU, BEATA (This form is maintained as a part of the permanent medical record) 2015 [employer]. All Rights Reserved Beata Watkins RN, BS [email or web address] Cell [facility] HOSPITALBrenda
[2018-04-12] MEDS: cefTRIAXone\\ROCEPHIN 2 GM in Sodium Chloride 0.9% 100 ML IVPB SCH (09:18)
[2018-04-12] MEDS: Amlodipine 5 MG TAB PO SCH (09:18)
[2018-04-12] MEDS: Lisinopril/Hydrochlorothiazide 20 mg/12.5 mg Tablet PO SCH ×2 (09:19→20:53)
[2018-04-12] MEDS: Pantoprazole 40 MG VIAL IVP SCH (09:19)
[2018-04-12] MEDS ORDERED: Furosemide 40 MG/4 ML VIAL SLOW IVP SCH (11:30)
[2018-04-12 12:39] LABS: Hemoglobin 12.1 g/dL (14.0-18.0); Mean Corpuscular Volume 88.2 fl (80.0-94.0); Mean Platelet Volume 7.8 fL (7.4-10.4); Platelet Count 159 thou/uL (130-400); RBC Distribution Width 15.1 % (11.5-14.5); Red Blood Cell (RBC) Count 4.03 mill/uL (4.70-6.10); White Blood Cell (WBC) Count 14.6 thou/uL (4.8-10.8)
[2018-04-12 13:04] LABS: Band 3 % (5-11); Eosinophils 4 % (0-10); Lymphocytes 24 % (21-51); MDiff Complete? YES; Metamyelocyte 2 % (0-0); Monocytes 6 % (0-10); Neutrophil 55 % (42-75); Reactive Lymphocytes 6 % (0-10)
--- NOTE | 2018-04-12 13:40 | RAD ---
PA AND LATERAL CHEST: COMPARISON: 04/08/18 study. HISTORY: Shortness of breath. FINDINGS: Heart size is enlarged. Pulmonary vessels are mildly engorged. There are some increased interstitia l lung markings. The overall appearance is fairly similar to the previous examination. IMPRESSION: Cardiomegaly with pulmonary vascular engorgement and some increased interstitial markings, some of wh ich may represent chronic change would suggest some element of edema. Findings are fairly similar to the previous exam given differences in technique. Some of the interstitial changes may be slightly accentuated on today's study. POS: [facility]
--- NOTE | 2018-04-12 14:47 | PDOC.PN ---
- Subjective Encounter Start Date: 04/12/18 Encounter Start Time: 09:45 Subjective: pt states that he has been coughing pink tinged sputum - Objective Resuscitation Status: Resuscitation Status FULL:Full Resuscitation Vital Signs & Weight: Vital Signs (12 hours) Temp Pulse Resp BP BP Pulse Ox 04/12/18 11:14 97.8 F 66 20 145/87 H 97 04/12/18 11:08 68 18 98 04/12/18 09:19 63 04/12/18 09:18 63 144/94 H 04/12/18 08:00 97.5 F L 63 20 99 04/12/18 07:26 97.5 F L 63 20 144/94 H 99 04/12/18 04:00 98.1 F 88 20 96 Weight Admit Weight 262 lb Weight 262 lb Most Recent Monitor Data Heart Rate from ECG 85 NIBP 159/92 NIBP BP-Mean 115 Respiration from ECG 20 SpO2 100 I&O: 04/11/18 04/12/18 04/13/18 06:59 06:59 06:59 Intake Total 1510 1399 Output Total 3710 665 Balance -2200 734 Result Diagrams: 04/12/18 12:22 04/11/18 03:50 Phys Exam - Physical Examination HEENT: PERRLA, moist MMs, sclera anicteric, TM's clear, oral pharynx no lesions , 2+ tonsils Neck: no nodes, no JVD, supple, full ROM Respiratory: no wheezing, no rales, no rhonchi, wheezing present, clear to auscultation bilateral mild crackles to bases Gastrointestinal: soft, non-tender, no distention, positive bowel sounds Musculoskeletal: no edema, pulses present, edema present Dx/Plan (1) Sepsis Code(s): A41.9 - SEPSIS, UNSPECIFIED ORGANISM Status: Acute (2) UTI (urinary tract infection) Status: Acute (3) Leukocytosis Code(s): D72.829 - ELEVATED WHITE BLOOD CELL COUNT, UNSPECIFIED Status: Acute (4) Acute kidney injury Code(s): N17.9 - ACUTE KIDNEY FAILURE, UNSPECIFIED Status: Acute Comment: resolving (5) Bacteremia Code(s): R78.81 - BACTEREMIA Status: Acute - Plan * blood cx positive for ecoli. will consult ID. Pt complains of cough with pink tinged sputum. will give one dose of lasix and check cxr. will get PT to see pt. creatinine improving. pt possible could even have prostatitis? Review of Systems - Review of Systems ENT: negative: Ear Pain, Ear Discharge, Nose Pain, Nose Discharge, Nose Congestion, Mouth Pain, Mouth Swelling, Throat Pain, Throat Swelling, Other Respiratory: Cough Cardiovascular: negative: chest pain, palpitations, orthopnea, paroxysmal nocturnal dyspnea, edema, light headedness, other Gastrointestinal: negative: Nausea, Vomiting, Abdominal Pain, Diarrhea, Constipation, Melena, Hematochezia, Other - Medications/Allergies Allergies/Adverse Reactions: Allergies Allergy/AdvReac Type Severity Reaction Status Date / Time Penicillins Allergy Severe chest Verified 07/02/17 18:49 cramps, "massive" Medications: Current Medications Acetaminophen (Tylenol) 650 mg PO Q4H PRN PRN Reason: Headache/Fever or Pain Last Admin: 04/11/18 23:09 Dose: 650 mg Acetaminophen/Codeine Phosphate (Tylenol #3) 1 tab PO TID PRN PRN Reason: Pain Albuterol/Ipratropium (Duoneb) 3 ml NEB Q4H PRN PRN Reason: .SOB Last Admin: 04/08/18 20:16 Dose: 3 ml Albuterol/Ipratropium (Duoneb) 3 ml NEB TID-RT [facility] Last Admin: 04/12/18 11:08 Dose: 3 ml Alprazolam (Xanax) 0.5 mg PO HSPRN PRN PRN Reason: Anxiety/Insomnia Last Admin: 04/11/18 23:09 Dose: 0.5 mg Amlodipine Besylate (Norvasc) 5 mg PO DAILY [facility] Last Admin: 04/12/18 09:18 Dose: 5 mg Atorvastatin Calcium (Lipitor) 10 mg PO HS [facility] Last Admin: 04/11/18 20:31 Dose: 10 mg Diphenhydramine HCl (Benadryl) 25 mg PO HS PRN PRN Reason: Insomnia Ferrous Sulfate (Feosol) 325 mg PO HS [facility] Last Admin: 04/11/18 20:31 Dose: 325 mg Lisinopril/HCTZ (Prinizide 20-12.5) 1 tab PO BID [facility] Last Admin: 04/12/18 09:19 Dose: 1 tab Ceftriaxone Sodium 2 gm/ (Sodium Chloride) 100 mls @ 200 mls/hr IVPB DAILY [facility] Last Admin: 04/12/18 09:18 Dose: 100 mls Metoprolol Succinate (Toprol Xl) 50 mg PO BID [facility] Last Admin: 04/12/18 09:19 Dose: 50 mg Ondansetron HCl (Zofran Odt) 4 mg PO Q6H PRN PRN Reason: Nausea/Vomiting Last Admin: 04/08/18 20:17 Dose: 4 mg Ondansetron HCl (Zofran) 4 mg IVP Q6H PRN PRN Reason: Nausea/Vomiting Pantoprazole Sodium (Protonix) 40 mg PO Q12HR [facility] Quetiapine Fumarate (Seroquel) 25 mg PO HS [facility] Ranolazine (Ranexa) 500 mg PO BID [facility] Last Admin: 04/12/18 09:20 Dose: 500 mg Sodium Chloride (Flush - Normal Saline) 10 ml IVF Q12HR [facility] Last Admin: 04/12/18 09:20 Dose: 10 ml Sodium Chloride (Flush - Normal Saline) 10 ml IVF PRN PRN PRN Reason: Saline Flush Tramadol HCl (Ultram) 50 mg PO Q4H PRN PRN Reason: Moderate Pain (4-6) Last Admin: 04/11/18 23:09 Dose: 50 mg Venlafaxine HCl (Effexor Xr) 150 mg PO 0600,1200 [facility] Last Admin: 04/12/18 11:50 Dose: 150 mg
--- NOTE | 2018-04-12 20:22 | CON ---
DATE OF CONSULTATION: 04/12/2018 REASON FOR CONSULTATION: Invasive urinary tract infection. HISTORY OF PRESENT ILLNESS: A 62-year-old whom I had treated in the past for knee infection, bactere mitch, and lumbosacral spine infection in 2016. In 07/2017, he was admitted with upper GI bleed from g astrointestinal ulcers, and at this time, he presented with new onset of vomiting associated with shlomo e urinary symptoms which had been present for a few weeks before, has had some hematuria as well asso ciated with this. Had subjective fever and chills. His initial BP 85/50, heart rate 106, temperatur e 99.4. The exam showed clear lungs. Normal heart. Abdomen distended but not tender. LABORATORY DATA: White cell count 6.6, hemoglobin 12.4, creatinine 2.4. Lactic acid 4.4, BUN 42%, 4 1% bands. Ultrasound of the gallbladder showed a little bit of distention. There was some concern w ith that and HIDA scan was done, which showed just a decreased ejection fraction and now we have a po sitive blood culture from urine and blood with E. coli with a very broad susceptibility profile. He is feeling better. No headaches. No visual symptoms, sore throat, odynophagia, or dysphagia. No cough or sputum production. No chest pain, abdominal pain, or diarrhea. No back pain. Still some delay in voiding stream. No joint symptoms. No neurological symptoms. PAST MEDICAL HISTORY: Hypertension, hyperlipidemia, low back pain, right knee septic arthritis secon gloria to methicillin-sensitive Staph aureus, treated in the past with IV antimicrobial therapy, bacter emia, and bilateral hip surgeries. ALLERGIES: PENICILLIN with rash. CURRENT MEDICATIONS: Tylenol, DuoNeb, Xanax, Norvasc, Lipitor, Rocephin, Benadryl, Feosol, Lasix, Pr inzide, Toprol, Zofran, Protonix, Seroquel, Ranexa, Ultram, Effexor. FAMILY HISTORY: Heart disease. SOCIAL HISTORY: Never a smoker. Lives in [place]. Retired. PHYSICAL EXAMINATION: GENERAL: Pleasant, in no distress. VITAL SIGNS: T-max 101 on arrival. He has been afebrile since. BP 140/90, pulse 63, respirations 2 0, O2 sat 99%. SKIN: Normal. Peripheral IV access. No Soto catheter. HEENT: Noncontributory. NECK: Supple. LUNGS: Symmetric clear breath sounds. CARDIOVASCULAR: S1, S2, regular rate. No murmurs. ABDOMEN: Soft and not distended or tender. Rectal examination showed a slightly enlarged prostate g land, but no nodularity noted. GENITAL: Normal. EXTREMITIES: No joint inflammatory activity. Pulses 1+ in dorsalis pedis. Moves all extremities eq ually. Plantar responses are flexure. No clonus. NEUROLOGIC: Cognitive function appears to be intact. LABORATORY AND X-RAY FINDINGS: White cell count is down from 20-14.6 hemoglobin is at 12.1, platelet s are stable at 159, bands are down to 3%, creatinine is at 1.52. Urinalysis was greater than 50 on admission, greater than 50 wbc's on admission. Alkaline phosphatase now has normalized at 93. Repor ts include a chest x-ray with cardiomegaly, pulmonary vascular engorgement. The abdomen ultrasound w ith distention of gallbladder, kidneys are not obstructed and urinary bladder decompressed. ASSESSMENT: Hypertension and prior episode of methicillin-sensitive Staphylococcus aureus right knee infection, now with evidence of invasive urinary tract infection, likely pyelonephritis. DISCUSSION: There is no evidence of obstruction. The organism is susceptible to quinolones and I wo uld recommend transition to ciprofloxacin, treat for approximately 2-4 weeks. The patient will need PSA and likely Flomax.
[2018-04-12] MEDS: Atorvastatin Calcium 10 MG TAB PO SCH (20:53)
[2018-04-12] MEDS: Ferrous Sulfate 325 MG TAB PO SCH (20:53)
[2018-04-12] MEDS: ALPRAZolam 0.5 MG TAB PO PRN (21:01)
[2018-04-12] MEDS: traMADol HCl 50 MG TAB PO PRN (21:01)
[2018-04-12] MEDS: Acetaminophen 325 MG TAB PO PRN (21:01)
[2018-04-13] MEDS: Venlafaxine HCl XR 150 MG CAP PO SCH ×2 (05:27→13:40)
[2018-04-13 05:56] LABS: Band 3 % (5-11); Eosinophils 1 % (0-10); Hemoglobin 11.4 g/dL (14.0-18.0); Lymphocytes 29 % (21-51); MDiff Complete? YES; Mean Corpuscular HGB CONC 33.7 g/dL (32.0-36.0); Mean Corpuscular Hemoglobin 29.9 pg (27.0-31.0); Mean Corpuscular Volume 88.8 fl (80.0-94.0); Mean Platelet Volume 7.9 fL (7.4-10.4); Metamyelocyte 2 % (0-0); Monocytes 3 % (0-10); Neutrophil 56 % (42-75); PLT Morphology Comment Appears Adequate; Platelet Count 160 thou/uL (130-400); RBC Morphology Normal; Reactive Lymphocytes 6 % (0-10); Red Blood Cell (RBC) Count 3.81 mill/uL (4.70-6.10); White Blood Cell (WBC) Count 10.9 thou/uL (4.8-10.8)
[2018-04-13 06:00] LABS: Anion Gap 13 mmol/L (10-20); BUN (Urea Nitrogen) 28 mg/dL (8.4-25.7); Calc. Creatinine Clearance 96 mL/min (70-130); Calcium 9.4 mg/dL (7.8-10.44); Carbon Dioxide 29 mmol/L (23-31); Chloride 99 mmol/L (98-107); Estimated GFR-MDRD 54; Glucose 138 mg/dL (80-115); Potassium 3.3 mmol/L (3.5-5.1); Sodium 138 mmol/L (136-145)
[2018-04-13] MEDS ORDERED: Furosemide 40 MG/4 ML VIAL SLOW IVP SCH (09:00)
[2018-04-13] MEDS: Lisinopril/Hydrochlorothiazide 20 mg/12.5 mg Tablet PO SCH (09:29)
[2018-04-13] MEDS: Amlodipine 5 MG TAB PO SCH (09:30)
[2018-04-13] MEDS: cefTRIAXone\\ROCEPHIN 2 GM in Sodium Chloride 0.9% 100 ML IVPB SCH (09:57)
[2018-04-13] MEDS ORDERED: Potassium Chloride 20 MEQ TAB PO SCH (11:15)
--- NOTE | 2018-04-13 12:41 | PRG ---
DATE OF SERVICE: 04/13/2018 SUBJECTIVE: This morning, awake, alert and responsive. No cough, no shortness of breath. OBJECTIVE: VITAL SIGNS: Temperature 98, pulse 58, blood pressure 130/79. CHEST: Chest revealed decreased breath sounds, no wheezing. CARDIAC: Normal S1, S2. No gallops. ABDOMEN: Soft, no masses. IMPRESSION: 1. E. coli sepsis. 2. Morbid obesity. 3. Hypertension, relatively resolved. 4. Sleep apnea. PLAN: The patient can be discharged home as per primary care physician. Pulmonary will follow on ou tpatient basis with a sleep study.
[2018-04-13] MEDS ORDERED: Venlafaxine HCl XR 150 MG CAP PO SCH (14:00)
[2018-04-13 16:00] VITALS: BP 120/80; TEMP 97.7
[2018-04-13] MEDS ORDERED: Ciprofloxacin 500 MG TAB PO SCH (20:00)
[2018-04-13] MEDS ORDERED: Cipro 250 MG TAB PO SCH (20:00)
[2018-04-13] MEDS ORDERED: Cefdinir 300 MG CAP PO SCH (21:00)
--- NOTE | 2018-04-14 13:13 | DIS ---
DATE OF ADMISSION: 04/08/2018 DATE OF DISCHARGE: 04/13/2018 DISCHARGE DIAGNOSES: 1. Urinary tract infection, sepsis. 2. Bacteremia. 3. Kidney injury. HOSPITAL COURSE: The patient is a very pleasant 62-year-old male who presented to the hospital with complaints of nausea, vomiting, diarrhea, and feeling weak. The patient was treated for sepsis flavia col and was found to have a UTI. Patient initially was admitted in the ICU, was put on 2 pressors an d continued to be hypotensive after adequate fluid resuscitation. The patient was found to have E. c eugenio UTI and also his blood cultures x2 bottles were positive for E. coli. The patient at this time a lso had some complaints of right upper quadrant that was concern for possible cholecystitis. Patient did undergo a HIDA scan, which did indicate that the patient had a low ejection fraction and also pollard d a chronic acalculous cholecystitis and gallbladder dyskinesia. Surgery was consulted who recommend ed outpatient followup. The patient continued to improve throughout the hospital stay. He was also seen by Infectious Disease. The patient will be discharged home. Follow up with PCP and also with a possible Urology since patient states that he has been having some trouble urinating. DISCHARGE MEDICATIONS: Omnicef 300 mg p.o. b.i.d., Norvasc 5 mg daily, Zocor 20 mg at bedtime, fenof ibrate 145 q.p.m., metoprolol 50 mg b.i.d., Protonix 40 mg b.i.d., Seroquel 50 mg at bedtime, Lisinop ril/hydrochlorothiazide 1 p.o. b.i.d., Ranexa 500 mg b.i.d., Effexor 150 mg b.i.d., iron 325 at bedti me, multivitamin 1 daily. The patient initially was supposed to be on Cipro; however, given his cont raindication with Seroquel, Omnicef was chosen. DISCHARGE INSTRUCTIONS: Again, the patient will be discharged home. Follow up with PCP.
== END 2018-04-13 16:23 | disposition home or self-care (01) | DRG 871 ==
LOC: ERS 14:48 → CCU 17:44 → T4-B 04-11 15:23
PROVIDERS: ADMIT Internal Medicine; ATTEND Internal Medicine
PROC: 3E033XZ Introduction of Vasopressor into Peripheral Vein, Percutaneous Approach (ICD-10-PCS; principal; 2018-04-09)
DX: A41.51 Sepsis due to Escherichia coli [E. coli] (principal); R65.21 Severe sepsis with septic shock; N17.9 Acute kidney failure, unspecified; N12 Tubulo-interstitial nephritis, not specified as acute or chronic; E27.40 Unspecified adrenocortical insufficiency; B96.20 Unspecified Escherichia coli [E. coli] as the cause of diseases classified elsewhere; R31.9 Hematuria, unspecified; E66.01 Morbid (severe) obesity due to excess calories; Z68.37 Body mass index [BMI] 37.0-37.9, adult; F43.10 Post-traumatic stress disorder, unspecified; G47.33 Obstructive sleep apnea (adult) (pediatric); E86.0 Dehydration; J40 Bronchitis, not specified as acute or chronic; K80.20 Calculus of gallbladder without cholecystitis without obstruction; N18.9 Chronic kidney disease, unspecified; I12.9 Hypertensive chronic kidney disease with stage 1 through stage 4 chronic kidney disease, or unspecified chronic kidney disease; F32.9 Major depressive disorder, single episode, unspecified; Z87.19 Personal history of other diseases of the digestive system; Z87.11 Personal history of peptic ulcer disease; Z87.891 Personal history of nicotine dependence; Z96.651 Presence of right artificial knee joint; X58.XXXA Exposure to other specified factors, initial encounter; Y92.009 Unspecified place in unspecified non-institutional (private) residence as the place of occurrence of the external cause
CPT/HCPCS: 36415; 36556; 71045; 71046; 74018; 76700; 78227; 80048; 80053; 80076; 81003; 81015; 82533; 83605; 83690; 85007; 85025; 85027; 85060; 87040; 87077; 87086; 87149; 87186; 94640; 94760; 96360; 96361; 96365; 96366; 96367; 96368; A4216; A9537; C9113; G8978-GP-CJ; G8979-GP-CJ; G8980-GP-CJ; J0696; J1720; J1940; J1956; J2185; J3370; J7050; J7620; P9045; Q0162

== ENCOUNTER 2018-05-12 08:30 | Day surgery (SDC) | payer BC, MEDICARE ==
[2018-05-10 11:03] VITALS: BMI 32.3
[2018-05-12] MEDS ORDERED: Levofloxacin 500 mg/D5W 100 ml Premix Bag ONE (09:10)
[2018-05-12] MEDS ORDERED: Fentanyl 100 MCG/2 ML VIAL ONE ×3 (09:31→11:36)
[2018-05-12] MEDS ORDERED: Midazolam HCl 2 mg/2 ml Vial ONE (09:31)
[2018-05-12] MEDS ORDERED: Bupivacaine HCl 0.5%/Epinephrine 1:200,000/PF 30 ml Vial ONE (10:02)
[2018-05-12] MEDS ORDERED: HYDROmorphone 0.5 MG/0.5 ML SYRINGE ONE (10:16)
--- NOTE | 2018-05-12 11:29 | OP ---
DATE OF PROCEDURE: 05/12/2018 PREOPERATIVE DIAGNOSES: Chronic cholecystitis, acalculous, biliary dyskinesia, morbid obesity. POSTOPERATIVE DIAGNOSES: Chronic cholecystitis, acalculous, biliary dyskinesia, morbid obesity. PROCEDURE: Laparoscopic video cholecystectomy. SURGEON: Rodrigo Toledo M.D. ANESTHESIA: General. Local 0.5% Marcaine with epinephrine 30 mL, 30 mL volume used. SPECIMENS: Gallbladder. FINDINGS: Fatty liver, morbid obesity, difficult cholecystectomy. PROCEDURE: The patient was taken to the operating room where under general anesthesia, abdomen was p repared with ChloraPrep, draped in routine fashion. Local anesthetic infiltrated into the skin and s ubcutaneous tissue about each port site. Infraumbilical incision made and pneumoperitoneum to 15 mmH g obtained, replacing with a 5 port and video laparoscope inserted. Right subxiphoid incision made a nd 11 port placed. Right subcostal incision made mid clavicular anterior axillary lines and 5 ports placed. Morbid obesity made this operation difficult. Fundus of gallbladder grasped and reflected c ephalad. Infundibulum grasped and reflected laterally. Cystic artery and duct dissected free. Crit ical view obtained. Cystic artery and duct doubly clipped proximally, divided, and gallbladder disse cted free from the liver bed obtaining good hemostasis prior to division of final peritoneal attachme nts. Good hemostasis ensured with the cautery. Irrigant and pneumoperitoneum evacuated. Gallbladde r removed and submitted to pathology. All instruments removed and all skin incisions approximated wi th interrupted subdermal 4-0 Monocryl and DermaGlue applied.
[2018-05-12] MEDS ORDERED: Lidocaine 1% PF 5 ML VIAL ONE (14:01)
[2018-05-12] MEDS ORDERED: PROPOFOL 200 MG/20 ML VIAL ONE (14:01)
[2018-05-12] MEDS ORDERED: Glycopyrrolate 0.2 MG/ML 5 ML SYRINGE ONE (14:01)
[2018-05-12] MEDS ORDERED: Ondansetron HCl/PF 4 MG/2 ML Vial ONE (14:01)
[2018-05-12] MEDS ORDERED: Dexamethasone 20 MG/5 ML VIAL ONE (14:01)
--- NOTE | 2018-05-22 10:48 | HP ---
HISTORY OF PRESENT ILLNESS: Temo Vu is seen in the hospital 04/10/2018 regarding abnorma l HIDA scan. At that time, he denied any symptoms. He now reports that he is having nausea, bloatin g, early satiety and desires cholecystectomy. His gallbladder ejection fraction was 23%. The plan i s for a laparoscopic cholecystectomy. ALLERGIES: The patient is allergic to PENICILLIN. SOCIAL HISTORY: He does not smoke. PAST MEDICAL HISTORY: He does have chronic kidney disease and a fatty liver. Common bile duct was 6 mm on ultrasound. The plan at this time is for laparoscopic cholecystectomy with cholangiograms. The risk of operation including infection, bleeding, visceral injury were discussed. PHYSICAL EXAMINATION: LUNGS: Clear to auscultation. CARDIAC: Regular rate and rhythm without murmur or gallop. ABDOMEN: Soft, nontender. EXTREMITIES: Unremarkable. ASSESSMENT AND PLAN: Biliary dyskinesia with slight elevation of liver function test. PLAN: 1. Laparoscopic cholecystectomy, cholangiograms. 2. Chronic kidney disease.
== END 2018-05-12 16:40 | disposition home or self-care (01) ==
LOC: SDC 08:30
PROVIDERS: ATTEND Specialist
PROC: 0FT44ZZ Resection of Gallbladder, Percutaneous Endoscopic Approach (ICD-10-PCS; principal; 2018-05-12)
DX: K81.1 Chronic cholecystitis (principal); N18.9 Chronic kidney disease, unspecified; K76.0 Fatty (change of) liver, not elsewhere classified; E66.01 Morbid (severe) obesity due to excess calories; Z68.32 Body mass index [BMI] 32.0-32.9, adult; Z79.899 Other long term (current) drug therapy; Z88.0 Allergy status to penicillin
CPT/HCPCS: 51798; 88304; 96374; J0131; J0670; J1100; J1170; J1956; J2001; J2250; J2405; J2704; J3010

== ENCOUNTER 2018-05-24 19:30 | Outpatient (CLI) | payer BC, MEDICARE | END 2018-05-24 19:31 | disposition home or self-care (01) | LOC: SLEEPLAB 19:30 | PROVIDERS: ATTEND Internal Medicine Pulmonary Disease | DX: G47.33 Obstructive sleep apnea (adult) (pediatric) (principal); R53.83 Other fatigue; F41.8 Other specified anxiety disorders; I10 Essential (primary) hypertension; E66.9 Obesity, unspecified; Z68.32 Body mass index [BMI] 32.0-32.9, adult | CPT/HCPCS: 95810 ==

== ENCOUNTER 2018-06-06 | Outpatient (CLI) | payer BC, MEDICARE | END 2018-06-06 20:31 | disposition home or self-care (01) | DX: G47.33 Obstructive sleep apnea (adult) (pediatric) (principal); R53.83 Other fatigue; E66.9 Obesity, unspecified; Z68.32 Body mass index [BMI] 32.0-32.9, adult ==

== ENCOUNTER 2019-01-02 12:16 | Day surgery (SDC) | payer BC, MEDICARE ==
[2018-12-25 17:31] VITALS: BMI 29.4
[2019-01-02] MEDS ORDERED: Levofloxacin 500 mg/D5W 100 ml Premix Bag ONE (12:53)
[2019-01-02] MEDS ORDERED: PHENYLEPHRINE-NS 100 MCG/ML 10 ML SYRINGE ONE (13:04)
[2019-01-02] MEDS ORDERED: Lidocaine 1% PF 5 ML VIAL ONE (13:04)
[2019-01-02] MEDS ORDERED: Ondansetron PF 4 MG/2 ML Vial ONE (13:04)
[2019-01-02] MEDS ORDERED: PROPOFOL 200 MG/20 ML VIAL ONE (13:04)
[2019-01-02] MEDS ORDERED: ePHEDrine 50 MG/ML VIAL ONE (13:04)
[2019-01-02] MEDS ORDERED: Fentanyl 100 MCG/2 ML VIAL ONE (13:07)
--- NOTE | 2019-01-02 15:38 | OP ---
DATE OF PROCEDURE: 01/02/2019 PREOPERATIVE DIAGNOSIS: Urethral stricture. POSTOPERATIVE DIAGNOSIS: Urethral stricture. PROCEDURE PERFORMED: Optical internal urethrotomy, leaving a 20-Indian silicone [place] catheter. COMPLICATIONS: None. DRAIN REMAINING: A 20-Indian catheter. ESTIMATED BLOOD LOSS: Minimal. INDICATIONS FOR PROCEDURE: The patient is a 63-year-old male, who was followed in the office for lower urinary tract symptoms and ultimately diagnosed with a urethral stricture and opted for optical internal urethrotomy in the OR. DESCRIPTION OF PROCEDURE: The patient was brought into the room by Anesthesia, laid on the table in supine position. After receiving general anesthetic, he was placed in lithotomy position and his perineum was prepped and draped in sterile fashion. Using a 21-Indian cystoscope with a portion accepting a resectoscope knife went to the level of the stricture, which was in the bulbar urethra and at the 12 o'clock position, I incised until I could get my scope in and through to the bladder. The prostate itself was not significantly hypertrophied. The ureteral orifices were normal in position. There was mild mucus debris, but otherwise no concerns for stones or lesions. After inspecting the entire bladder, the bladder was then further rinsed and filled and then the 21-Indian cystoscope with a resectoscope instrument was removed. Prior to placing that originally, a 17-Indian cystoscope had been placed to the level of the stricture and a wire had been placed in there, so that was remaining there as a safety before placing the 21-Indian. So when I removed the 21-Indian, the wire was still in place and this was used to help place a 21-Indian silicone catheter, which had been turned into a [place]. This was blown up and left to gravity and the wire was removed and then secured to a leg bag. The patient tolerated the procedure well, was then awakened and transferred to the PACU in stable condition. Job ID: [id number]
== END 2019-01-02 16:58 | disposition home or self-care (01) ==
LOC: SDC 12:16
PROVIDERS: ATTEND Urology
PROC: 0TND8ZZ Release Urethra, Via Natural or Artificial Opening Endoscopic (ICD-10-PCS; principal; 2019-01-02)
DX: N35.912 Unspecified bulbous urethral stricture, male (principal); I10 Essential (primary) hypertension; N47.1 Phimosis; F41.8 Other specified anxiety disorders; E78.00 Pure hypercholesterolemia, unspecified; K21.9 Gastro-esophageal reflux disease without esophagitis; N52.9 Male erectile dysfunction, unspecified; Z87.891 Personal history of nicotine dependence; Z79.899 Other long term (current) drug therapy; Z88.0 Allergy status to penicillin
CPT/HCPCS: J1956; J3010